=== PATIENT | male | born 1975 | race Caucasian/White ===

== ENCOUNTER 2021-01-03 10:21 | Emergency (ER) | payer MEDICAID ==
[~2021-01-03] VITALS: Ht 185.4 cm; Wt 89.0 kg
[2021-01-03] VITALS (15 sets, daily range): BP systolic 107–130; BP diastolic 69–88
[2021-01-03] MEDS ORDERED: SODIUM CHLORIDE 0.9% 1,000 ML IV ONE (10:45)
[2021-01-03] MEDS ORDERED: MORPHINE SULFATE 4 MG/ML CPJ (NOT FOR IM USE) IV STA (11:42)
[2021-01-03] MEDS ORDERED: ONDANSETRON HCL 4MG/2ML INJ IV STA (11:42)
[2021-01-03 12:04] LABS: BASOPHILS % 0.3 % (0.0-2.0); EOSINOPHILS % 0.1 % (0.0-5.0); HEMATOCRIT. 41.1 % (42.0-52.0); HEMOGLOBIN. 14.2 g/dL (14.0-18.0); LYMPHOCYTES % 26.8 % (20.0-50.0); MEAN CORPUSCULAR HEMOGLOBIN 29.3 pg (28.0-32.0); MEAN PLATELET VOLUME 8.5 fl (7.4-10.4); MONOCYTES % 14.9 % (2.0-8.0); NEUTROPHILS % 57.9 % (40.0-76.0); PLATELET 214 x1000/uL (130-400); RED BLOOD CELL COUNT 4.84 mill/uL (4.7-6.1); RED CELL DISTRIBUTION WIDTH 13.2 % (11.6-14.6)
[2021-01-03 12:05] LABS: CHLORIDE 103 mEq/L (98-107)
[2021-01-03 12:10] LABS: INR 1.1; PROTHROMBIN TIME 11.6 sec (9.6-11.0)
[2021-01-03] MEDS ORDERED: LIDOCAINE HCL 1% 20ML VIAL (Pyxis) INJ ONE (12:49)
[2021-01-03] MEDS ORDERED: IOHEXOL-300 50 ML BOTTLE IV ONE (12:49)
[2021-01-03] MEDS ORDERED: CEFAZOLIN 1000MG PREMIX 50 ML IV NR (13:00)
[2021-01-03] MEDS ORDERED: CEFAZOLIN 1000MG PREMIX 50 ML IV ONE (13:07)
[2021-01-03] MEDS ORDERED: T3 PO (13:38)
[2021-01-03] MEDS ORDERED: FENTANYL CITRATE/PF 50MCG/ML 2ML VIAL ONE (13:42)
[2021-01-03] MEDS ORDERED: FENTANYL CITRATE/PF 50MCG/ML 2ML VIAL IV ONE (13:45)
[2021-01-03] MEDS ORDERED: SULF1TAB48 MT (14:44)
[2021-01-03] MEDS ORDERED: SULFAMETHOXAZOLE/TRIMETHOPRIM 800/160MG TABLET PO ONE (14:45)
[2021-01-03 15:20] LABS: CLARITY URINE TURBID (CLEAR); COLOR URINE ORANGE (YELLOW); KETONES URINE NEGATIVE (NEGATIVE); LEUKOCYTE ESTERASE URINE 3+ (NEGATIVE); NITRITE URINE NEGATIVE (NEGATIVE); OCCULT BLOOD URINE 3+ (NEGATIVE); PROTEIN URINE 3+ (NEGATIVE); SPECIFIC GRAVITY URINE 1.016 (1.005-1.030); UROBILINOGEN URINE 0.2 E.U./dL (0.2-1.0)
== END 2021-01-03 15:32 | disposition home or self-care (01) ==
LOC: ER 10:21
DX: N99.521 Infection of incontinent external stoma of urinary tract (principal); N99.522 Malfunction of incontinent external stoma of urinary tract; Z20.822 Contact with and (suspected) exposure to COVID-19; Y82.8 Other medical devices associated with adverse incidents; Y84.8 Other medical procedures as the cause of abnormal reaction of the patient, or of later complication, without mention of misadventure at the time of the procedure; Z87.828 Personal history of other (healed) physical injury and trauma
CPT/HCPCS: 36415; 50435; 80053; 81003; 85025; 85610; 87040; 87086; 87426; 96361; 96365; 96375; 99285; C1729; C1769; J0690; J2270; J2405; J3010; J3490; J7030; J7040; Q9967; Z7610; 96374; 99152; 99153; G0500

== ENCOUNTER 2021-02-26 09:15 | Emergency (ER) | payer MEDICAID ==
[~2021-02-26] VITALS: Ht 188 cm; Wt 91.0 kg
[~2021-02-26 09:15] MED LIST: SULF1TAB48 MT; T3 PO
[2021-02-26 09:30] VITALS: BP 113/86
[2021-02-26 10:12] LABS: BASOPHILS % 0.9 % (0.0-2.0); EOSINOPHILS % 1.7 % (0.0-5.0); HEMATOCRIT. 40.1 % (42.0-52.0); HEMOGLOBIN. 13.2 g/dL (14.0-18.0); MEAN CORPUSCULAR VOLUME 87.8 fL (80.0-94.0); MEAN PLATELET VOLUME 8.1 fl (7.4-10.4); MONOCYTES % 13.1 % (2.0-8.0); NEUTROPHILS % 37.3 % (40.0-76.0); PLATELET 234 x1000/uL (130-400); RED BLOOD CELL COUNT 4.57 mill/uL (4.7-6.1); RED CELL DISTRIBUTION WIDTH 14.2 % (11.6-14.6)
[2021-02-26 10:21] LABS: CHLORIDE 109 mEq/L (98-107)
[2021-02-26 10:23] LABS: PROTHROMBIN TIME 10.8 sec (9.6-11.0)
[2021-02-26 10:42] LABS: CLARITY URINE CLEAR (CLEAR); COLOR URINE YELLOW (YELLOW); KETONES URINE NEGATIVE (NEGATIVE); LEUKOCYTE ESTERASE URINE NEGATIVE (NEGATIVE); NITRITE URINE NEGATIVE (NEGATIVE); OCCULT BLOOD URINE 1+ (NEGATIVE); PROTEIN URINE NEGATIVE (NEGATIVE); SPECIFIC GRAVITY URINE 1.019 (1.005-1.030); UROBILINOGEN URINE 0.2 E.U./dL (0.2-1.0)
[2021-02-26] MEDS ORDERED: TOPUD PO (11:21)
== END 2021-02-26 11:52 | disposition home or self-care (01) ==
LOC: ER 09:15
DX: Z13.9 Encounter for screening, unspecified (principal); I10 Essential (primary) hypertension; Z93.6 Other artificial openings of urinary tract status
CPT/HCPCS: 36415; 80053; 81003; 85025; 99283

== ENCOUNTER 2021-02-26 12:10 | Emergency (ER) | payer MEDICAID ==
[~2021-02-26] VITALS: Ht 188 cm; Wt 91.0 kg
[~2021-02-26 12:10] MED LIST changes: +TOPUD PO
[2021-02-26 14:27] VITALS: BP 124/76
== END 2021-02-26 16:37 | disposition left against medical advice (07) ==
LOC: ER 12:10
DX: R10.9 Unspecified abdominal pain (principal); Z93.6 Other artificial openings of urinary tract status
CPT/HCPCS: 99281

== ENCOUNTER 2021-04-29 05:27 | Emergency (ER) | payer MEDICAID ==
[~2021-04-29] VITALS: Ht 188 cm; Wt 91.0 kg
[2021-04-29 07:02] VITALS: BP 125/67
== END 2021-04-29 07:11 ==
LOC: ER 05:27
DX: T59.91XA Toxic effect of unspecified gases, fumes and vapors, accidental (unintentional), initial encounter (principal); M54.9 Dorsalgia, unspecified; X58.XXXA Exposure to other specified factors, initial encounter; Y35.213A Legal intervention involving injury by tear gas, suspect injured, initial encounter; Y93.89 Activity, other specified; Y92.89 Other specified places as the place of occurrence of the external cause; F99 Mental disorder, not otherwise specified; F12.90 Cannabis use, unspecified, uncomplicated; Z93.6 Other artificial openings of urinary tract status
CPT/HCPCS: 99283